=== PATIENT | female | born 1985 | race Caucasian/White ===

== ENCOUNTER 2016-07-26 20:52 | Emergency (ER) | payer OTHER ==
[2016-07-26 21:01] VITALS: BP 101/80; PULSE 66; TEMP 97.7; BMI 24.6
--- NOTE | 2016-07-26 21:30 | PDOC ---
History of Present Illness - General Chief Complaint: Back Pain Stated Complaint: BACK PAIN Time Seen by Provider: 07/26/16 21:21 History Source: Patient Exam Limitations: No Limitations - History of Present Illness Initial Comments: 07/26/16 22:23 My chief complaint: Right lower back pain History of present illness: Patient is a 31-year-old female with no significant medical problems here today complaining of right lower back pain 3 days. Patient reports that she did a boot camp class 4 days ago and woke the following day with right lower back pain with muscle spasm worse with sitting or lying. Patient took Advil Aleve with out pain. Patient denies any radiation of pain down the legs and any saddle anesthesia or incontinency or numbness of leg. Patient reports that is difficult to straighten up when she is sitting or lying down and getting up from that position. Patient reports that pain is a 7 out of 10 aching in nature. Patient denies any previous back injuries. Occurred: reports: other (ON 07/23/16) Severity: reports: moderate Pain Location: reports: back (RIGHT LOWER BACK ) Method of Injury: Yes: other (HAD BEEN EXERCISING DAY PRIOR ) Modifying Factors: improves with: other (standing ) Loss of Consciousness: no loss of consciousness Associated Symptoms (Fall): muscle spasms (rt. lower back ) Past History - Past Medical History Allergies/Adverse Reactions: Allergies Allergy/AdvReac Type Severity Reaction Status Date / Time No Known Allergies Allergy Verified 07/26/16 20:57 Home Medications: Ambulatory Orders Cyclobenzaprine HCl [Flexeril 10 mg] 10 mg PO Q12H PRN #10 tablet 07/26/16 Asthma: No Cancer: No Cardiac Disorders: No Diabetes: No HTN: No Seizures: No Thyroid Disease: No - Psycho/Social/Smoking Cessation Hx Suicidal Ideation: No Smoking History: Never smoked Have you smoked in the past 12 months: No Hx Alcohol Use: No Drug/Substance Use Hx: No Hx Substance Use Treatment: No Review of Systems - Review of Systems Able to Perform ROS?: Yes Constitutional: No: Symptoms Reported HEENTM: No: Symptoms Reported Respiratory: No: Symptoms reported Cardiac (ROS): No: Symptoms Reported ABD/GI: No: Symptoms Reported : No: Symptoms Reported Musculoskeletal: Yes: Back Pain (rt. lumbar paraspinal muscle tenderness), Muscle Pain (rt. lumbar paraspinal muscle tenderness) Integumentary: No: Symptoms Reported Neurological: No: Symptoms reported *Physical Exam - Vital Signs Last Vital Signs Temp Pulse Resp BP Pulse Ox 97.7 F 66 16 101/80 97 07/26/16 21:00 07/26/16 21:00 07/26/16 21:00 07/26/16 21:00 07/26/16 21:00 - Physical Exam General Appearance: Yes: Appropriately Dressed Respiratory/Chest: positive: Lungs Clear, Normal Breath Sounds. negative: Chest Tender, Respiratory Distress Cardiovascular: positive: Regular Rhythm, Regular Rate, S1, S2 Musculoskeletal: positive: Normal Inspection, Decreased Range of Motion (from waist bending forward ), Muscle Spasm (rt. lumbar paraspinal muscle tenderness) . negative: CVA Tenderness, CVA Tenderness (R), CVA Tenderness (L), Vertebral Tenderness Extremity: positive: Normal Capillary Refill, Normal Inspection, Normal Range of Motion Integumentary: positive: Normal Color Neurologic: positive: Normal Response, Motor Strength 5/5 (b/l lower legs), Respond to painful stimul (b/l legs ), Other (negative SLR b/l ). negative: Numbness, Sensory Deficit (legs ) Deep Tendon Reflexes: Knee (L): 4+, Knee (R): 4+ Medical Decision Making - Medical Decision Making 07/26/16 22:25 Patient is a 31-year-old female with no significant medical problems here today complaining of right lower back pain 3 days. Patient reports that she did a boot camp class 4 days ago and woke the following day with right lower back pain with muscle spasm worse with sitting or lying. Patient took Advil Aleve with out pain. Patient denies any radiation of pain down the legs and any saddle anesthesia or incontinency or numbness of leg. Patient reports that is difficult to straighten up when she is sitting or lying down and getting up from that position. Patient reports that pain is a 7 out of 10 aching in nature. Patient denies any previous back injuries. Right lower back strain PLAN: urine HCG negative toradol 60 mg IM now flexeril 10 mg po now than q 12 hr prn muscle spasm for 5 days Ibuprofen 400 mg every 6 prn pain # 18 follow up with orthopedist if pain continues *DC/Admit/Observation/Transfer Diagnosis at time of Disposition: Low back strain Qualifiers: Encounter type: initial encounter Qualified Code(s): S39.012A - Strain of muscle, fascia and tendon of lower back, initial encounter - Discharge Dispostion Disposition: HOME Condition at time of disposition: Stable - Referrals Referrals: Sean Hough MD [Primary Care Provider] - Huey Tracy MD [Staff Physician] - - Patient Instructions Additional Instructions: Avoid any Strenuous activities or exercise until cleared by M.D. prior to return to activities Return to emergency room for worsening pain or numbness of right leg or groin Follow-up with orthopedist next week if pain continues Take ibuprofen 400 mg every 6 hours as needed for pain may purchase over-the- counter Patient voiced understanding of discharge instructions and all questions were answered
[2016-07-26] MEDS ORDERED: KETOROLAC TROMETHAMINE 60 MG/2 ML VIAL IM ONE (22:19)
[2016-07-26] MEDS ORDERED: CYCLOBENZAPRINE HCL 10 MG TABLET (FP) PO ONE (22:19)
[2016-07-26] MEDS ORDERED: KETOROLAC TROMETHAMINE 60 MG/2 ML VIAL ONE (22:22)
[2016-07-26] MEDS ORDERED: CYCLOBENZAPRINE HCL 10 MG TABLET (FP) ONE (22:27)
== END 2016-07-26 22:58 | disposition home or self-care (01) ==
LOC: JERFT 20:52
PROC: 3E0233Z Introduction of Anti-inflammatory into Muscle, Percutaneous Approach (ICD-10-PCS; principal; 2016-07-26)
DX: S39.012A Strain of muscle, fascia and tendon of lower back, initial encounter (principal); X50.0XXA Overexertion from strenuous movement or load, initial encounter; Y93.B9 Activity, other involving muscle strengthening exercises; Y92.89 Other specified places as the place of occurrence of the external cause
CPT/HCPCS: 84703; 96372; 99281-25

== ENCOUNTER 2019-03-21 18:47 | Emergency (ER) | payer OTHER ==
[2019-03-21 18:58] VITALS: BP 106/62; PULSE 82; TEMP 98.3; BMI 24.0
[2019-03-21] MEDS ORDERED: ACETAMINOPHEN 500 MG TABLET (FP) PO ONE (19:18)
[2019-03-21] MEDS ORDERED: ACETAMINOPHEN 325 MG TABLET (FP) ONE (19:24)
[2019-03-21] MEDS ORDERED: KETOROLAC TROMETHAMINE 60 MG/2 ML VIAL IM ONE (19:47)
[2019-03-21] MEDS ORDERED: diazePAM 5 MG TABLET PO ONE (19:47)
[2019-03-21] MEDS ORDERED: diazePAM 5 MG TABLET ONE (19:52)
[2019-03-21] MEDS ORDERED: KETOROLAC TROMETHAMINE 60 MG/2 ML VIAL ONE (19:52)
[2019-03-21 19:55] LABS: URINE APPEARANCE CLOUDY; URINE BILIRUBIN NEGATIVE (NEGATIVE); URINE COLOR YELLOW; URINE GLUCOSE (UA) NEGATIVE (NEGATIVE); URINE KETONE TRACE (NEGATIVE); URINE LEUK ESTERASE NEGATIVE (NEGATIVE); URINE NITRITE NEGATIVE (NEGATIVE); URINE PROTEIN NEGATIVE (NEGATIVE)
--- NOTE | 2019-03-21 20:03 | PDOC ---
History of Present Illness - General Chief Complaint: Back Pain Stated Complaint: SACRAL/PAIN/NAUSEA Time Seen by Provider: 03/21/19 19:02 - History of Present Illness Initial Comments: 03/21/19 20:01 33-year-old female without comorbidities presents for evaluation of lower back pain x2 days after doing squats at the gym. No radicular symptoms loss of bowel or bladder function or saddle paresthesias. Past History - Past Medical History Allergies/Adverse Reactions: Allergies Allergy/AdvReac Type Severity Reaction Status Date / Time No Known Allergies Allergy Verified 03/21/19 18:58 Home Medications: Ambulatory Orders Cyclobenzaprine HCl [Flexeril 10 mg] 10 mg PO Q12H PRN #10 tablet 07/26/16 Cyclobenzaprine HCl [Flexeril 10 mg] 10 mg PO HS PRN #10 tablet 03/21/19 Ibuprofen [Motrin -] 600 mg PO TID #30 tablet 03/21/19 Asthma: No Cancer: No Cardiac Disorders: No COPD: No Diabetes: No HTN: No Seizures: No Thyroid Disease: No - Psycho Social/Smoking Cessation Hx Smoking History: Never smoked Have you smoked in the past 12 months: No Hx Alcohol Use: No Drug/Substance Use Hx: No Hx Substance Use Treatment: No Review of Systems - Review of Systems Musculoskeletal: Yes: Back Pain *Physical Exam - Vital Signs Last Vital Signs Temp Pulse Resp BP Pulse Ox 98.3 F 82 14 106/62 100 03/21/19 18:56 03/21/19 18:56 03/21/19 18:56 03/21/19 18:56 03/21/19 18:56 - Physical Exam 03/21/19 20:01 Lumbar spine skin color and temperature are normal. There is full nonpainful range of motion. 5 out of 5 strength in bilateral lower extremities. Straight leg raise test is negative bilaterally. Thighs and calves are soft and nontender. There are no gross sensory motor deficits. Neurovascularly intact. There is moderate bilateral paralumbar musculature spasm and tenderness. No midline tenderness. Mild bilateral paralumbar musculature spasm and tenderness greater on the right than the left. No gross sensorimotor deficits neurovascular intact. ED Treatment Course - ADDITIONAL ORDERS Additional order review: Laboratory Results 03/21/19 03/21/19 19:28 19:28 Urine Color Yellow Urine Appearance Cloudy Urine pH 6.0 Ur Specific [place] 1.027 Urine Protein Negative Urine Glucose (UA) Negative Urine Ketones Trace H Urine Blood Negative Urine Nitrite Negative Urine Bilirubin Negative Urine Urobilinogen 1.0 Ur Leukocyte Esterase Negative Urine HCG, Qual Negative - Medications Given in the ED: ED Medications Discontinued Medications Generic Name Dose Route Start Last Admin Trade Name Cristel PRN Reason Stop Dose Admin Acetaminophen 1,000 mg 03/21/19 19:18 03/21/19 19:22 Tylenol - PO 03/21/19 19:19 1,000 mg ONCE ONE Administration Diazepam 10 mg 03/21/19 19:47 03/21/19 19:51 Valium - PO 03/21/19 19:48 10 mg ONCE ONE Administration Ketorolac Tromethamine 60 mg 03/21/19 19:47 03/21/19 19:51 Toradol Injection - IM 03/21/19 19:48 60 mg ONCE ONE Administration Medical Decision Making - Medical Decision Making 03/21/19 20:02 Pain relieved with Toradol and Valium follow-up with primary care physician and neurosurgery. Motrin and Flexeril given Discharge - Discharge Information Problems reviewed: Yes Clinical Impression/Diagnosis: Low back strain Condition: Stable Disposition: HOME - Admission No - Follow up/Referral Referrals: Kira Dunham MD [Primary Care Provider] - George Kenny MD, FAANS [Staff Physician] - - Patient Discharge Instructions Additional Instructions: Please start the Motrin tomorrow. You were given an injection of a long-acting anti-inflammatory do not take the Motrin until tomorrow evening. Return to the emergency room for worsening symptoms the Flexeril is 1 tablet before bedtime will make you sleepy. Return to the emergency room for worsening symptoms and without fail follow-up with neurosurgery in 1 to 2 days for further evaluation and treatment options. - Post Discharge Activity
== END 2019-03-21 20:14 | disposition home or self-care (01) ==
LOC: JERFT 18:47
PROC: 3E0233Z Introduction of Anti-inflammatory into Muscle, Percutaneous Approach (ICD-10-PCS; principal; 2019-03-21)
DX: S39.012A Strain of muscle, fascia and tendon of lower back, initial encounter (principal); X50.0XXA Overexertion from strenuous movement or load, initial encounter; Y93.B9 Activity, other involving muscle strengthening exercises; Y92.39 Other specified sports and athletic area as the place of occurrence of the external cause; Y99.8 Other external cause status
CPT/HCPCS: 81003; 84703; 99281-25

== ENCOUNTER 2022-10-26 23:33 | Inpatient (IN) | payer OTHER ==
[2022-10-26 23:40] VITALS: BMI 24.0
[2022-10-27] MEDS ORDERED: KETOROLAC TROMETHAMINE 30 MG/1 ML VIAL IM ONE (00:03)
[2022-10-27] MEDS ORDERED: METHOCARBAMOL 500 MG TABLET PO ONE (00:03)
[2022-10-27] MEDS ORDERED: LIDOCAINE 5% TOPICAL PATCH TP ONE (00:04)
[2022-10-27] MEDS ORDERED: KETOROLAC TROMETHAMINE 15 MG/ML VIAL ONE ×2 (00:11→02:53)
[2022-10-27] MEDS ORDERED: LIDOCAINE 5% TOPICAL PATCH ONE (00:11)
[2022-10-27] MEDS ORDERED: METHOCARBAMOL 500 MG TABLET ONE (00:11)
[2022-10-27] MEDS ORDERED: methylPREDNISolone NA SUCC 125 MG/2 ML VIAL IVPUSH ONE (01:42)
[2022-10-27] MEDS ORDERED: morphine CARPU-JECT 4 MG/1 ML DISP.SYRIN IVPUSH ONE (01:42)
[2022-10-27] MEDS ORDERED: ONDANSETRON 4 MG/2 ML VIAL IVPUSH ONE (01:56)
[2022-10-27] MEDS ORDERED: ONDANSETRON 4 MG/2 ML VIAL ONE (01:58)
[2022-10-27] MEDS ORDERED: SODIUM CHLORIDE 0.9% 500 ML INFUS.BAG IV ONE (02:01)
[2022-10-27] MEDS ORDERED: methylPREDNISolone NA SUCC 125 MG/2 ML VIAL ONE (02:03)
[2022-10-27 02:31] LABS: BASO % 0.3 % (0-2.0); EOS % 0.5 % (0-4.5); HEMATOCRIT 37.7 % (32.4-45.2); LYMPH % 20.3 % (8-40); MCH 26.6 pg (25.7-33.7); MCHC 31.8 g/dl (32.0-36.0); MEAN CELL VOLUME 83.4 fl (80-96); MEAN PLT VOLUME 10.1 fl (7.5-11.1); MONO % 8.2 % (3.8-10.2); NEUT % 70.7 % (42.8-82.8); PLATELET COUNT 214 10^3/uL (134-434); RBC 4.52 M/mm3 (3.60-5.2); RDW 13.2 % (11.6-15.6)
[2022-10-27 02:53] LABS: CHLORIDE 104 mmol/L (98-107); POTASSIUM 3.9 mmol/L (3.5-5.1); SODIUM 138 mmol/L (136-145)
[2022-10-27 02:55] LABS: ALBUMIN 3.6 g/dl (3.4-5.0); ANION GAP 3 MMOL/L (8-16); BLOOD UREA NITROGEN 15.2 mg/dL (7-18); CALCIUM 8.5 mg/dL (8.5-10.1); CO2 31 mmol/L (21-32); GLUCOSE,RANDOM 102 mg/dL (74-106)
[2022-10-27 02:58] LABS: CREATININE 0.6 mg/dL (0.55-1.3); SGOT/AST 129 U/L (15-37); SGPT/ALT 61 U/L (13-61)
[2022-10-27 03:00] LABS: BILIRUBIN,TOTAL 0.2 mg/dL (0.2-1); TOT PROT 6.7 g/dl (6.4-8.2)
[2022-10-27 03:01] LABS: ALK PHOS 44 U/L (45-117)
[2022-10-27 03:29] LABS: ERYTHROCYTE SEDIMENTATION RATE 13 mm/hr (0-20)
[2022-10-27] MEDS ORDERED: KETOROLAC TROMETHAMINE 30 MG/1 ML VIAL IVPUSH PRN (06:00)
[2022-10-27] MEDS ORDERED: ACETAMINOPHEN 325 MG TABLET (FP) ONE (06:40)
[2022-10-27] MEDS: ACETAMINOPHEN 325 MG TABLET (FP) PO PRN ×3 (06:42→21:57)
[2022-10-27] MEDS: KETOROLAC TROMETHAMINE 15 MG/ML VIAL IVPUSH PRN ×2 (12:48→18:13)
[2022-10-28] MEDS: KETOROLAC TROMETHAMINE 15 MG/ML VIAL IVPUSH PRN ×2 (08:17→21:07)
[2022-10-28] MEDS ORDERED: ACETAMINOPHEN 325 MG TABLET (FP) PO PRN (09:26)
[2022-10-28] MEDS: PANTOPRAZOLE 40 MG TABLET PO SCH ×2 (10:31→13:08)
[2022-10-28] MEDS: DEXAMETHASONE SOD PHOSPHATE 10 MG/1 ML VIAL IVPUSH SCH ×3 (10:31→21:06)
[2022-10-28] MEDS: METHOCARBAMOL 500 MG TABLET PO SCH ×2 (13:07→21:06)
[2022-10-29] MEDS: DEXAMETHASONE SOD PHOSPHATE 10 MG/1 ML VIAL IVPUSH SCH ×4 (05:57→17:40)
[2022-10-29] MEDS: METHOCARBAMOL 500 MG TABLET PO SCH ×3 (05:58→22:03)
[2022-10-29] MEDS: PANTOPRAZOLE 40 MG TABLET PO SCH (10:05)
[2022-10-29] MEDS: KETOROLAC TROMETHAMINE 15 MG/ML VIAL IVPUSH PRN (18:13)
[2022-10-29 19:04] VITALS: RESP 18
[2022-10-29] MEDS: HEPARIN NA (PORCINE) 5,000 UNITS/ML 1ML VIAL SQ SCH (22:03)
[2022-10-30] MEDS: DEXAMETHASONE SOD PHOSPHATE 10 MG/1 ML VIAL IVPUSH SCH ×2 (01:20→10:06)
[2022-10-30] MEDS: METHOCARBAMOL 500 MG TABLET PO SCH (05:49)
[2022-10-30] MEDS: HEPARIN NA (PORCINE) 5,000 UNITS/ML 1ML VIAL SQ SCH (10:05)
[2022-10-30] MEDS: KETOROLAC TROMETHAMINE 15 MG/ML VIAL IVPUSH PRN (10:05)
[2022-10-30] MEDS: PANTOPRAZOLE 40 MG TABLET PO SCH (10:06)
[2022-10-30 12:27] VITALS: BP 105/57; PULSE 73; TEMP 98.4
== END 2022-10-30 12:50 | disposition home or self-care (01) | DRG 552 ==
LOC: JER 23:33 → UNDOADMOB 10-27 01:53 → JERBED 10-27 01:53 → J7W 10-27 16:21 → OBSVTOIN 10-29 10:00
PROVIDERS: ADMIT Internal Medicine; ATTEND Family Medicine
DX: M51.16 Intervertebral disc disorders with radiculopathy, lumbar region (principal); M54.50 Low back pain, unspecified; M25.551 Pain in right hip; M54.31 Sciatica, right side
CPT/HCPCS: 36415; 72131-TC; 72148-TC; 80053; 84484; 84703; 85025; 85651; 86140; 93005; 93010; 97116-GP; 97162-GP; 99285-25; G0378; J1100; J1644

== ENCOUNTER 2024-04-29 10:40 | Inpatient (IN) | payer OTHER ==
[2024-04-29] MEDS: ELECTROLYTE-148 SOLN 500 ML IV SCH (11:00)
[2024-04-29 12:09] LABS: BASO % 0.4 % (0-2.0); EOS % 0.4 % (0-4.5); HEMATOCRIT 38.4 % (32.4-45.2); HEMOGLOBIN 12.8 GM/dL (10.7-15.3); LYMPH % 14.8 % (8-40); MCH 27.2 pg (25.7-33.7); MCHC 33.5 g/dl (32.0-36.0); MEAN CELL VOLUME 81.3 fl (80-96); MEAN PLT VOLUME 10.5 fl (7.5-11.1); MONO % 8.8 % (3.8-10.2); NEUT % 75.6 % (42.8-82.8); PLATELET COUNT 152 10^3/uL (134-434); RBC 4.72 M/mm3 (3.60-5.2); RDW 14.7 % (11.6-15.6); WHITE BLOOD COUNT 11.4 K/mm3 (4.0-10.0)
[2024-04-29 12:16] LABS: INR 0.99 (0.83-1.09); PROTHROMBIN TIME (PATIENT) 10.8 SEC (9.7-13.0)
[2024-04-29 12:17] VITALS: BMI 33.8
[2024-04-29 12:19] LABS: ACTIVATED PTT 26.4 SECONDS (25.2-36.5)
[2024-04-29 12:27] LABS: POTASSIUM 3.9 mmol/L (3.5-5.1)
[2024-04-29 12:28] LABS: BLOOD UREA NITROGEN 8.3 mg/dL (7-18); CALCIUM 9.1 mg/dL (8.5-10.1)
[2024-04-29 12:32] LABS: CREATININE 0.5 mg/dL (0.55-1.3)
[2024-04-29] MEDS: ELECTROLYTE-148 SOLN 1,000 ML IV SCH ×2 (13:34→19:18)
[2024-04-29] MEDS: CITRIC ACID/SODIUM CITRATE 30 ML UNIT-DOSE CUP PO ONE (13:34)
[2024-04-29] MEDS ORDERED: LIGASURE IMPACT TP ONE (14:43)
[2024-04-29] MEDS ORDERED: FENTANYL CITRATE/PF 50 MCG/ML VIAL ONE (14:52)
[2024-04-29] MEDS ORDERED: morphine SULFATE/PF 1 MG/2 ML (2cc Syringe - QUVA) ONE (14:52)
[2024-04-29] MEDS ORDERED: OXYTOCIN 20 UNITS in 0.9% NS 20 UNIT/1,000 ML INFUS.BAG IV ONE ×2 (16:06→17:45)
[2024-04-29] MEDS ORDERED: WITCH HAZEL 50% (TUCKS) 40 PAD/JAR PAD TP PRN (16:55)
[2024-04-29] MEDS ORDERED: METHYLERGONOVINE MALEATE 0.2 MG/1 ML AMP IM PRN (16:55)
[2024-04-29] MEDS ORDERED: BENZOCAINE 28 GM HEMORRHOIDAL OINTMENT TP PRN (16:55)
[2024-04-29] MEDS ORDERED: BENZOCAINE 20% 57 GM BOTTLE TP PRN (16:55)
[2024-04-29] MEDS: OXYTOCIN 20 UNITS in 0.9% NS 20 UNIT/1,000 ML INFUS.BAG IV SCH (17:30)
[2024-04-29 17:35] LABS: CORD BASE EXCESS -6.3 mmol/L (0-2); CORD HCO3 21.6 mmHg (20-29); CORD PCO2 51.8 mmHg (30-78); CORD pH 7.238 (7.14-7.44)
[2024-04-29 17:38] LABS: CORD HCO3 23.9 mmHg (20-29); CORD PCO2 59.6 mmHg (30-78); CORD pH 7.221 (7.14-7.44)
[2024-04-29] MEDS: CEFAZOLIN 1 GM in DEXTROSE 5%-WATER - 50 ML IVPB SCH (18:00)
[2024-04-29] MEDS ORDERED: ceFAZolin SODIUM 1 GM VIAL ONE (19:15)
[2024-04-29] MEDS ORDERED: IBUPROFEN (CALDOLOR) 800 MG/200 ML PREMIX BAGS IVPB ONE (20:14)
[2024-04-29] MEDS: IBUPROFEN 800 MG/8 ML IJ IVPB PRN (20:18)
[2024-04-29] MEDS: FAMOTIDINE 20 MG TABLET PO SCH (21:38)
[2024-04-30] MEDS ORDERED: oxyCODONE HCL 5 MG TABLET PO PRN ×2 (04:55)
[2024-04-30 06:50] LABS: BASO % 0.4 % (0-2.0); EOS % 0.3 % (0-4.5); LYMPH % 12.5 % (8-40); MCH 26.8 pg (25.7-33.7); MCHC 32.4 g/dl (32.0-36.0); MEAN CELL VOLUME 82.7 fl (80-96); MEAN PLT VOLUME 10.5 fl (7.5-11.1); MONO % 8.8 % (3.8-10.2); PLATELET COUNT 126 10^3/uL (134-434); RBC 4.11 M/mm3 (3.60-5.2); RDW 14.8 % (11.6-15.6); WHITE BLOOD COUNT 11.4 K/mm3 (4.0-10.0)
[2024-04-30] MEDS: ENOXAPARIN NA (PORCINE) 40 MG/0.4 ML DISP.SYRIN SQ SCH (09:33)
[2024-04-30] MEDS: PRENATAL VITAMINS W/ FOLIC ACID TABLET (FP) PO SCH (09:33)
[2024-04-30] MEDS: ACETAMINOPHEN 325 MG TABLET (FP) PO PRN (09:33)
[2024-04-30] MEDS: IBUPROFEN 600 MG TABLET (FP) PO PRN (17:01)
[2024-04-30] MEDS: SIMETHICONE 80 MG TAB.CHEW (FP) PO PRN (23:11)
[2024-05-01] MEDS: BISACODYL 10 MG SUPP.RECT RC PRN (14:30)
[2024-05-02 07:21] LABS: BASO % 0.4 % (0-2.0); EOS % 0.9 % (0-4.5); HEMATOCRIT 33.2 % (32.4-45.2); HEMOGLOBIN 10.7 GM/dL (10.7-15.3); LYMPH % 18.7 % (8-40); MCHC 32.1 g/dl (32.0-36.0); MEAN CELL VOLUME 83.9 fl (80-96); MEAN PLT VOLUME 9.7 fl (7.5-11.1); MONO % 8.5 % (3.8-10.2); NEUT % 71.5 % (42.8-82.8); PLATELET COUNT 175 10^3/uL (134-434); RBC 3.96 M/mm3 (3.60-5.2); WHITE BLOOD COUNT 9.9 K/mm3 (4.0-10.0)
[2024-05-02 12:39] VITALS: BP 99/62; PULSE 79; RESP 18; TEMP 98.2
== END 2024-05-02 13:45 | disposition home or self-care (01) | DRG 785 ==
LOC: JLDR 10:40 → J3W 20:30
PROVIDERS: ADMIT Obstetrics & Gynecology; ATTEND Obstetrics & Gynecology
PROC: 10D00Z1 Extraction of Products of Conception, Low, Open Approach (ICD-10-PCS; principal; 2024-04-29)
PROC: 0UB70ZZ Excision of Bilateral Fallopian Tubes, Open Approach (ICD-10-PCS; 2024-04-29)
DX: O34.211 Maternal care for low transverse scar from previous cesarean delivery (principal); N85.8 Other specified noninflammatory disorders of uterus; O34.03 Maternal care for unspecified congenital malformation of uterus, third trimester; Q51.28 Other and unspecified doubling of uterus; Z30.2 Encounter for sterilization; Z3A.38 38 weeks gestation of pregnancy; Z37.0 Single live birth
CPT/HCPCS: 36415; 36600; 59409; 80048; 82803; 85025; 85610; 85730; 86780; 86850; 86900; 86901; 88305-TC; 88307-TC